=== PATIENT | male | born 1955 | race African-American/Black ===

== ENCOUNTER 2018-09-27 13:59 | Inpatient (IN) | payer OTHER ==
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
[2018-09-27] MEDS ORDERED: ACETAMINOPHEN 500 MG TABLET (FP) PO ONE (14:26)
[2018-09-27] MEDS ORDERED: ACETAMINOPHEN 500 MG TABLET (FP) ONE (14:30)
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
[2018-09-27 17:22] LABS: BASO % 0.2 % (0-2.0); EOS % 0.1 % (0-4.5); HEMOGLOBIN 16.3 GM/dl (11.7-16.9); LYMPH % 9.2 % (8-40); MCH 32.6 pg (25.7-33.7); MCHC 33.9 g/dl (32.0-35.9); MEAN CELL VOLUME 96.1 fl (80-96); MEAN PLT VOLUME 8.1 fl (7.5-11.1); MONO % 3.7 % (3.8-10.2); NEUT % 86.8 % (42.8-82.8); PLATELET COUNT 183 K/MM3 (134-434); RDW 12.6 % (11.9-15.9); WHITE BLOOD COUNT 8.7 K/mm3 (4.0-10.8)
[2018-09-27 17:37] LABS: ALBUMIN 4.4 g/dl (3.4-5.0); BILIRUBIN,TOTAL 1.1 mg/dl (0.2-1); POTASSIUM 4.3 mmol/L (3.5-5.1); TOT PROT 7.7 g/dl (6.4-8.2)
[2018-09-27 17:43] LABS: INR 1.18 (0.82-1.09); PROTHROMBIN TIME (PATIENT) 13.2 SEC (10.2-13.0)
[2018-09-27 23:03] VITALS: BMI 28.0
--- NOTE | 2018-09-27 23:42 | CONSULT ---
Consultation: REQUESTING PROVIDER: Dr. Fountain CONSULT REQUEST: We have been asked to medically evaluate this patient for subarachnoid bleed HISTORY OF PRESENT ILLNESS: 63 year old male with a hx of non-insulin dependent diabetes mellitus and hypertension presented to [facility] s/p fall off a ladder at around an elevation of 6ft. 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 He was on a ladder doing handywork when he fell backward onto the ground. Reports that he hit his R shoulder and R side of his head. States that he did lose consciousness and reports that he could have been out for around 1 hour prior to getting up. His fall was unwitnessed as it was in his backyard. States that he has 8/10 pain in his R clavicle. Currently denies headache, lightheadedness, dizziness, nausea, vomiting, diarrhea, fevers, chills. REVIEW OF SYSTEMS: CONSTITUTIONAL: Absent: fever, chills, diaphoresis, generalized weakness, malaise, loss of appetite, weight change HEENT: Absent: rhinorrhea, nasal congestion, throat pain, throat swelling, difficulty swallowing, mouth swelling, ear pain, eye pain, visual changes CARDIOVASCULAR: Absent: chest pain, syncope, palpitations, irregular heart rate, lightheadedness , peripheral edema RESPIRATORY: Absent: cough, shortness of breath, dyspnea with exertion, orthopnea, wheezing, stridor, hemoptysis GASTROINTESTINAL: Absent: abdominal pain, abdominal distension, nausea, vomiting, diarrhea, constipation, melena, hematochezia GENITOURINARY: Absent: dysuria, frequency, urgency, hesitancy, hematuria, flank pain, genital pain MUSCULOSKELETAL: Absent: myalgia, arthralgia, joint swelling, back pain, neck pain SKIN: Absent: rash, itching, pallor HEMATOLOGIC/IMMUNOLOGIC: Absent: easy bleeding, easy bruising, lymphadenopathy, frequent infections ENDOCRINE: Absent: unexplained weight gain, unexplained weight loss, heat intolerance, cold intolerance NEUROLOGIC: Absent: headache, focal weakness or paresthesias, dizziness, unsteady gait, seizure, mental status changes, bladder or bowel incontinence PSYCHIATRIC: Absent: anxiety, depression, suicidal or homicidal ideation, hallucinations. PHYSICAL EXAMINATION Vital Signs - 24 hr 09/27/18 09/27/18 22:38 22:55 Temperature 97.2 F L 97.2 F L Pulse Rate 83 Respiratory 18 18 Rate Blood Pressure 160/90 160/90 GENERAL: A&Ox3, no acute distress EYES: PERRLA, EOMI ENT: Moist mucus membranes NECK: No JVD LUNGS: CTA, no wheezes HEART: RRR, no murmurs ABDOMEN: Soft, nontender, BS present MUSCULOSKELETAL: No CVA Tenderness EXTREMITIES: 2+ pulses, no edema. Pain on R clavicle palpation. NEUROLOGICAL: Cranial nerves II-XII intact. Motor strength 5/5 LUE, restricted due to pain in clavicle in RUE. no sensory deficits. no dysmetria. ASSESSMENT/PLAN: 63 year old male with a hx of non-insulin dependent diabetes mellitus and hypertension presented to [facility] s/p fall off a ladder at around an elevation of 6ft and found to have an acute subarachnoid bleed with an acute clavicular fracture #Acute subarachnoid bleed #Acute clavicular fracture #Diabetes Mellitus #Hypertension Neurological -no acute neurologic abnormalities on physical exam -CT head shows small amount of subarachnoid blood -Neurosurg consulted Dr. Echols, will get repeat head CT in 24 hours -neurochecks -BP control, maintain BP < 160 systolic Cardiovascular -patient has hx of hypertension, maintain BP < 160 systolic -patient does not remember home BP medication, will confirm. -hemodynamically stable -no other cardiac abnormalities Pulmonary -no pulmonary issues Gastrointestinal -No acute issues Endocrine -DM - ISS/BGM -on metformin at home, will hold while inpatient FEN -no standing fluids -replete lytes a necessary -diabetic/sodium diet Prophylaxis -SCDs Disposition -monitor in ICU, likely downgrade in AM ATTENDING PHYSICIAN STATEMENT I saw and evaluated the patient. I reviewed the resident's note and discussed the case with the resident. I agree with the resident's findings and plan as documented. SUBJECTIVE: OBJECTIVE: ASSESSMENT AND PLAN:
[2018-09-27] MEDS ORDERED: ACETAMINOPHEN 325 MG TABLET (FP) PO PRN (23:50)
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
[2018-09-28 06:26] LABS: HEMATOCRIT 42.6 % (35.4-49); HEMOGLOBIN 14.8 GM/dL (11.7-16.9); MCH 32.7 pg (25.7-33.7); MCHC 34.7 g/dl (32.0-35.9); MEAN CELL VOLUME 94.1 fl (80-96); MEAN PLT VOLUME 8.3 fl (7.5-11.1); PLATELET COUNT 169 K/MM3 (134-434); RBC 4.53 M/mm3 (4.00-5.60); RDW 13.3 % (11.9-15.9); WHITE BLOOD COUNT 5.8 K/mm3 (4.0-10.0)
[2018-09-28] MEDS: INSULIN SLIDING SCALE (NOVOLOG) 1 VIAL SQ SCH ×4 (06:28→21:19)
[2018-09-28 06:44] LABS: BLOOD UREA NITROGEN 12.9 mg/dL (7-18); CALCIUM 8.5 mg/dL (8.5-10.1); MAGNESIUM 2.1 mg/dL (1.8-2.4); PHOSPHOROUS 3.1 mg/dL (2.5-4.9); POTASSIUM 3.8 mmol/L (3.5-5.1)
[2018-09-28] MEDS ORDERED: INSULIN SLIDING SCALE (NOVOLOG) 1 VIAL SQ SCH (07:00)
--- NOTE | 2018-09-28 07:46 | CONSULT ---
Consult - text type - Consultation Consultation Note: ORTHOPEDIC SURGERY CONSULTATION NOTE Department of Orthopedic Surgery HISTORY OF PRESENT ILLNESS Mr. Joyce is a 63 year old right hand dominant male with PMH significant for HTN, DM, and SUDARSHAN who presented to the hospital after falling from a 6ft ladder and losing consciousness. He has been admitted to the ICU for subarachnoid hemorrhage. The orthopedic service was consulted for a right clavicle fracture. The patient notes pain and swelling at his right clavicle with LROM of his shoulder, which improves with rest. Denies any other injuries. Denies numbness, tingling or other constitutional complaints. The patient works as a contractor. Denies tobacco use, drug use, alcohol abuse. The patient lives with family and uses no assistive devices at baseline. FAMILY HISTORY non-contributory REVIEW OF SYMPTOMS A twelve-point review of systems was performed and was negative except as noted in HPI. PHYSICAL EXAM Constitutional: Alert and oriented to person, place, and time. Appears well- developed and well-nourished. No acute distress, appropriate mood and affect. Right Upper Extremity: Skin warm, dry, and intact; no lesions, rashes or ulcers noted. No tenting of the skin is seen. There is mild bruising and swelling over the clavicle. Muscle mass equal and symmetric to contralateral side. No atrophy noted. No masses or effusions noted. Tender to palpation at the right clavicle; Nontender throughout rest of extremity. Full passive and active ROM of his elbow , shoulder (IR/ER), and wrist and fingers, free from pain. Joints stable with no pathologic laxity. M/R/U/MSK/AX motor intact; SILT distally; 2+ radial pulses ; Cap refill brisk. Tone and reflexes normal. Left Upper Extremity: Skin warm, dry, and intact; no lesions, rashes or ulcers noted. Muscle mass equal and symmetric to contralateral side. No atrophy noted. No masses or effusions noted. No tenderness to palpation all joints; nontender throughout rest of extremity. Full passive and active ROM, free from pain. Joints stable with no pathologic laxity. M/R/U/MSK/AX motor intact; SILT distally; 2+ radial pulses; Cap refill brisk. Tone and reflexes normal. Right Lower Extremity: Skin warm, dry, and intact; no lesions, rashes or ulcers noted. Muscle mass equal and symmetric to contralateral side. No atrophy noted. No masses or effusions noted. No tenderness to palpation all joints; nontender throughout rest of extremity. No cords or calf tenderness No significant calf/ankle edema. Full passive and active ROM, free from pain. Joints stable with no pathologic laxity. EHL/TA/GS motor intact; SILT distally; 2+ DP pulses; Cap refill brisk. Tone and reflexes normal. Left Lower Extremity: Skin warm, dry, and intact; no lesions, rashes or ulcers noted. Muscle mass equal and symmetric to contralateral side. No atrophy noted. No masses or effusions noted. No tenderness to palpation all joints; nontender throughout rest of extremity. No cords or calf tenderness No significant calf/ankle edema. Full passive and active ROM, free from pain. Joints stable with no pathologic laxity. EHL/TA/GS motor intact; SILT distally; 2+ DP pulses; Cap refill brisk. Tone and reflexes normal. Active Problems Problem Status Category Onset Fall from ladder Acute Medical Fracture, clavicle closed, shaft Acute Medical SAH (subarachnoid hemorrhage) Acute Medical Social History Smoking history Never smoked Hx Alcohol Use No Allergies Allergy/AdvReac Type Severity Reaction Status Date / Time No Known Allergies Allergy Verified 09/27/18 14:04 Active Medications Generic Name Dose Route Start Last Admin Trade Name Freq PRN Reason Stop Dose Admin Acetaminophen 650 mg 09/27/18 23:50 Tylenol - PO Q4H PRN PAIN Chlorhexidine Gluconate 1 applic 09/28/18 22:00 Hibiclens For Decolonization - TP HS [facility] Insulin Aspart 1 vial 09/28/18 07:00 09/28/18 06:28 Novolog Vial Sliding Scale - SQ Not Given ACHS [facility] Protocol Mupirocin 1 applic 09/28/18 10:00 Bactroban Ointment (For Decolonization) - NS 10/03/18 09:59 BID [facility] Vital Signs (last) Temp Pulse Resp BP Pulse Ox 97.2 F L 69 18 148/99 09/27/18 22:55 09/28/18 06:00 09/28/18 06:00 09/28/18 06:00 Intake and Output 09/26/18 09/27/18 09/28/18 23:59 23:59 23:59 Intake Total 240 Output Total 500 Balance -260 Intake: Oral 240 Output: Urine 500 Void 500 Other: Weight 173 lb 11.2 oz 175 lb 1 oz Height 5 ft 6 in Body Mass Index (BMI) 28.0 Weight Measurement Method Built in Bed[facility] 09/28/18 05:20 09/28/18 05:20 IMAGING I personally reviewed all radiographs, CT, and other imaging. They demonstrate a midshaft displaced clavicle fracture. ASSESSMENT AND PLAN Mr. Joyce is a 63 year old male presenting status post fall admitted with subarachnoid hemorrhage, with a right sided clavicle fracture. We have reviewed the imaging and clinical findings in detail, as well as their potential implications. After appropriate informed discussion, the patient was placed in a sling. Patient was instructed regarding: non weight bearing on fractured side in sling signs and symptoms of compartment syndrome and need to seek immediate care should new onset numbness, tingling, or significantly increasing pain occur. maintain strict elevation above the level of the heart for the next 3-4 days. keeping the splint clean and dry. avoiding NSAID medications. Continue medical management. No further orthopedic surgical intervention at this time. All questions were answered. Thank you for involving our team in the care of this patient. Please have patient follow up in our office in 1-2 weeks [phone].
--- NOTE | 2018-09-28 09:13 | PN ---
Progress Note (short form) - Note Progress Note: NEUROSURGERY CONSULT DICTATED Chart reviewed Pt examined CT reviewed H/o HTN, DM s/p falling from a ladder and losing consciousness in his backyard. He believes he lost consciousness for about one hour. He notes that he has some trauma to his right hand. He denies headache, dizziness, diplopia, photophobia. c/o right shoulder pain, and can move his right hand and fingers. Denies any numbness or paresthesias of his right upper extremities. PE: AF, VSS HEENT- NC/AT; neck- supple; Cor- RRR; Lungs- CTA B; Abd- benign, + BS; Ext- no sign of DVT A/A/Ox3 CN- intact II-XII; Motor- 5/5 except decreased R shoulder ROM and strength; Sensation- intact; DTR- 1+ B UE/LE Labs- reviewed Head CT- no fx, small LEE R fronto-parietal junction; no mass effect C spine CT- reversal of lordosis, moderate spondylosis TSAH with intact neurological exam R clavicle fx - ortho f/u F/u head CT D/w ICU team
[2018-09-28] MEDS ORDERED: levETIRAcetam 500 MG/5 ML INJECTION VIAL IVPB SCH (10:00)
[2018-09-28] MEDS ORDERED: MUPIROCIN 2% TOPICAL OINTMENT FOR DECOLONIZATION NS SCH (10:00)
--- NOTE | 2018-09-28 11:25 | PN ---
Teaching Attending Note Name of Resident: Demetrius Avila ATTENDING PHYSICIAN STATEMENT I saw and evaluated the patient. I reviewed the resident's note and discussed the case with the resident. I agree with the resident's findings and plan as documented. SUBJECTIVE:asymptomatic. denies Cp, SOB,fever, chills, n/v/C/D, blurred vision, RAMIREZ, or tinnitus, weakness/numbness on one side. states he had +LOC for about an hour OBJECTIVE: Last Vital Signs Temp Pulse Resp BP Pulse Ox 98.2 F 71 16 156/90 09/28/18 10:00 09/28/18 10:00 09/28/18 10:00 09/28/18 10:00 General NAD CV s1 s2 RRR no murmur/rub/gallop Lungs CTA B/L no wheezing/rales/rhonchi Extremiteis RUE in sling, with good pulse and able to move the digits neuro CN II-XII grossly intact, strength equal in all 4 extremities (limited in RUE due to sling) neg dysmetria ASSESSMENT AND PLAN: 63yo M wtih PMH HTN, DM, SUDARSHAN on cpap presented to the ER after falling off a ladder after being electrocuted. was transferred from [facility] for MICU monitoring due to SAH 1. R frontoparietal SAH- due to trauma. cspine negative for facture. no neurological deficits appreciated. will repeat Head CT. seizure prophylaxis with Keppra. frequent neurochecks. Neurosurg on board 2. R clavicle Fracture- due to trauma. in sling. no intervention at this time. pain control. ortho consulted 3. HTN- above goal which could be due to pain. will re-start home medications. may need titration to optimize control 4. DVT ppx- SCD. hold pharmacologic in setting of SAH 5. MICU monitoring The care of this patient involved high complexity decision making to prevent further life threatening deterioration of the patient's condition and/or to evaluate & treat vital organ system(s) failure or risk of failure. 40 mins
--- NOTE | 2018-09-28 12:34 | PN ---
Physical Exam: SUBJECTIVE: Patient seen and examined at the bedside. Patient did not have any acute complaints. Denied chest pain, sob, abd pain, palpitations, weakness, numbness, tingling, visual changes, dizziness, lightheadedness, dysphagia, dyarthria, headache, fever, chills. OBJECTIVE: Vital Signs Period Temp Pulse Resp BP Sys/Shelby Pulse Ox Last 24 Hr 97.2 F-98.2 F 69-97 15-20 128-166/81-103 97-100 GENERAL: The patient is awake, alert, and fully oriented, in no acute distress. HEAD: Normal with no signs of trauma. EYES: PERRL, extraocular movements intact, sclera anicteric, conjunctiva clear. NECK: Trachea midline, full range of motion, supple. LUNGS: Breath sounds equal, clear to auscultation bilaterally, no wheezes, no crackles, no accessory muscle use. HEART: Regular rate and rhythm, S1, S2 without murmur, rub or gallop. ABDOMEN: Soft, nontender, nondistended, normoactive bowel sounds, no guarding, no rebound, no masses. EXTREMITIES: 2+ pulses, warm, well-perfused, no edema. Painful to palpation of R clavicle. NEUROLOGICAL: Cranial nerves II through XII grossly intact. Muscle strength 5/5 on bilateral LE, 5/5 on L UE, 4/5 on RUE likely from pain from fracture of clavicle. Bilaterally and equally intact to light touch. FTN intact, HTS intact. Romberg negative. PSYCH: Normal mood, normal affect. SKIN: Warm, dry, normal turgor, no rashes or lesions noted. Laboratory Results - last 24 hr 09/27/18 09/27/18 09/27/18 17:00 17:00 17:00 WBC 8.7 RBC 5.00 Hgb 16.3 Hct 48.0 MCV 96.1 H MCH 32.6 MCHC 33.9 RDW 12.6 Plt Count 183 MPV 8.1 Absolute Neuts (auto) 7.6 Neutrophils % 86.8 H Lymphocytes % 9.2 Monocytes % 3.7 L Eosinophils % 0.1 Basophils % 0.2 PT with INR INR PTT (Actin FS) 31.0 Sodium 136 Potassium 4.3 Chloride 103 Carbon Dioxide 27 Anion Gap 6 L BUN 16.0 Creatinine 1.0 Est GFR (CKD-EPI)AfAm 93.73 Est GFR (CKD-EPI)NonAf 80.87 POC Glucometer Random Glucose 196 H Calcium 9.0 Phosphorus Magnesium Total Bilirubin 1.1 H AST 25 ALT 35 Alkaline Phosphatase 54 Total Protein 7.7 Albumin 4.4 Blood Type Antibody Screen 09/27/18 09/27/18 09/28/18 17:00 17:00 05:20 WBC 5.8 RBC 4.53 Hgb 14.8 Hct 42.6 MCV 94.1 MCH 32.7 MCHC 34.7 RDW 13.3 Plt Count 169 MPV 8.3 Absolute Neuts (auto) Neutrophils % Lymphocytes % Monocytes % Eosinophils % Basophils % PT with INR 13.2 H INR 1.18 PTT (Actin FS) Sodium Potassium Chloride Carbon Dioxide Anion Gap BUN Creatinine Est GFR (CKD-EPI)AfAm Est GFR (CKD-EPI)NonAf POC Glucometer Random Glucose Calcium Phosphorus Magnesium Total Bilirubin AST ALT Alkaline Phosphatase Total Protein Albumin Blood Type A POSITIVE Antibody Screen Negative 09/28/18 09/28/18 09/28/18 05:20 05:24 11:15 WBC RBC Hgb Hct MCV MCH MCHC RDW Plt Count MPV Absolute Neuts (auto) Neutrophils % Lymphocytes % Monocytes % Eosinophils % Basophils % PT with INR INR PTT (Actin FS) Sodium 140 Potassium 3.8 Chloride 107 Carbon Dioxide 27 Anion Gap 7 L BUN 12.9 Creatinine 1.0 Est GFR (CKD-EPI)AfAm 93.73 Est GFR (CKD-EPI)NonAf 80.87 POC Glucometer 132 206 Random Glucose 143 H Calcium 8.5 Phosphorus 3.1 Magnesium 2.1 Total Bilirubin AST ALT Alkaline Phosphatase Total Protein Albumin Blood Type Antibody Screen Active Medications Generic Name Dose Route Start Last Admin Trade Name Freq PRN Reason Stop Dose Admin Acetaminophen 650 mg 09/27/18 23:50 Tylenol - PO Q4H PRN PAIN Chlorhexidine Gluconate 1 applic 09/28/18 22:00 Hibiclens For Decolonization - TP HS [facility] Insulin Aspart 1 vial 09/28/18 07:00 09/28/18 11:27 Novolog Vial Sliding Scale - SQ 2 units ACHS [facility] Administration Protocol Levetiracetam 500 mg 09/28/18 10:00 09/28/18 10:15 Keppra Injection - IVPB 500 mg BID [facility] Administration Mupirocin 1 applic 09/28/18 10:00 09/28/18 11:27 Bactroban Ointment (For Decolonization) - NS 10/03/18 09:59 1 applic BID [facility] Administration ASSESSMENT/PLAN: Jassi Joyce is a 63 year old male with a PMHx of HTN, DM, SUDARSHAN who presented to the ICU after an unwitnessed fall from a ladder and possible head hit discovered with a subarachnoid hemorrhage. Subarachnoid hemorrhage Acute clavicular head fracture DM HTN NEUROLOGIC - non focal neurologic exam - CT head showing frontoparietal convexity subarachnoid hemorrhage - head CT showing interval resolution of subarachnoid hemorrhage - Dr. Echols consulted, recs appreciated - Archie for seizure prophylaxis as per primary team - neurocheck q4h CARDIOLOGY - no acute issues - once home medications reconciled, may resume home meds RESPIRATORY - no acute issues RENAL - no acute issues GASTROINTESTINAL - no acute issues GENITOURINARY - no acute issues INFECTIOUS DISEASE - no acute issues ENDOCRINE - BGM ACHS - ISS HEMATOLOGY - continue to trend H/H, transfuse as needed MUSCULOSKELETAL - midshaft fx of the clavicle - cervical CT does not show any acute fx - Dr. Lazaro consulted, recs appreciated - sling given to patient - no acute indication for surgery - recs as per ortho PSYCHIATRY - no acute issues F/E/N - no standing fluids - continue to monitor electrolytes and transfuse as necessary - diabetic/sodium controlled diet LINES - L AC 20 gauge, inserted 09/27 PROPHYLAXIS - no chemical prophylaxis due to acute subarachnoid bleed - early ambulation CODE - full code DISPO - stable for transfer to telemetry CASE DISCUSSED WITH DR. LOCKWOOD AND PRIMARY TEAM KATYA NINO DO - PGY-1 INTERNAL MEDICINE Problem List - Problems (1) Fall from ladder Code(s): W11.XXXA - FALL ON AND FROM LADDER, INITIAL ENCOUNTER Qualifiers: Encounter type: initial encounter Qualified Code(s): W11.XXXA - Fall on and from ladder, initial encounter (2) Fracture, clavicle closed, shaft Code(s): S42.023A - DISP FX OF SHAFT OF UNSP CLAVICLE, INIT FOR CLOS FX Qualifiers: Encounter type: initial encounter Fracture alignment: nondisplaced Laterality: right Qualified Code(s): S42.024A - Nondisplaced fracture of shaft of right clavicle, initial encounter for closed fracture (3) SAH (subarachnoid hemorrhage) Code(s): I60.9 - NONTRAUMATIC SUBARACHNOID HEMORRHAGE, UNSPECIFIED Visit type - Emergency Visit Emergency Visit: No - New Patient This patient is new to me today: Yes Date on this admission: 09/28/18 - Critical Care Critical Care patient: No
--- NOTE | 2018-09-28 17:40 | PN ---
Physical Exam: SUBJECTIVE: Patient seen and examined in ICU today LINA 2, sitting in comfortably in bed. Pt is s/p fall from a six-foot ladder 2/2 to electric shock from open lightbulb socket. He states he was alone, fell on grass, and was unconscious for approximately one hour. Pt has no complaints today except for pain upon moving RUE. Pt is able to move all digits, he can flex his elbow but cannot raise his RUE at the shoulder w/out pain. He is communicating clearly and denies RAMIREZ, vision change, SOB, CP. Denies numbness and tingling. He states he has passed urine and stool normally. OBJECTIVE: Vital Signs Last Vital Signs Temp Pulse Resp BP Pulse Ox 98.3 F 68 24 H 152/73 100 09/28/18 16:25 09/28/18 16:25 09/28/18 16:25 09/28/18 16:25 09/28/18 09:00 GENERAL: The patient is awake, alert, and fully oriented, in no acute distress. Communicates in Malagasy. HEAD: Atraumatic, normocephalic. EYES: PERRLA, extraocular movements intact, sclera anicteric, conjunctiva clear. No ptosis. LUNGS: Breath sounds equal, clear to auscultation bilaterally, no wheezes, no crackles, no accessory muscle use. HEART: Regular rate and rhythm, S1, S2 without murmur, rub or gallop. ABDOMEN: Soft, nontender, nondistended, normoactive bowel sounds, no guarding, no rebound, no hepatosplenomegaly, no masses. EXTREMITIES: 2+ pulses, warm, well-perfused, capillary refill w/in 3 seconds, no edema. NEUROLOGICAL: Cranial nerves II through XII grossly intact. Normal speech. Gait not observed though pt reports he is able to walk to the bathroom. No evidence of dysmetria. Strength 5/5 in BL LE, LUE but not tested in RUE. PSYCH: Normal mood, normal affect. SKIN: Warm, dry, normal turgor, no rashes or lesions noted Laboratory Results - last 24 hr 09/27/18 09/27/18 09/27/18 17:00 17:00 17:00 WBC RBC Hgb Hct MCV MCH MCHC RDW Plt Count MPV PT with INR 13.2 H INR 1.18 PTT (Actin FS) 31.0 Sodium 136 Potassium 4.3 Chloride 103 Carbon Dioxide 27 Anion Gap 6 L BUN 16.0 Creatinine 1.0 Est GFR (CKD-EPI)AfAm 93.73 Est GFR (CKD-EPI)NonAf 80.87 POC Glucometer Random Glucose 196 H Calcium 9.0 Phosphorus Magnesium Total Bilirubin 1.1 H AST 25 ALT 35 Alkaline Phosphatase 54 Total Protein 7.7 Albumin 4.4 Blood Type Antibody Screen 09/27/18 09/28/18 09/28/18 17:00 05:20 05:20 WBC 5.8 RBC 4.53 Hgb 14.8 Hct 42.6 MCV 94.1 MCH 32.7 MCHC 34.7 RDW 13.3 Plt Count 169 MPV 8.3 PT with INR INR PTT (Actin FS) Sodium 140 Potassium 3.8 Chloride 107 Carbon Dioxide 27 Anion Gap 7 L BUN 12.9 Creatinine 1.0 Est GFR (CKD-EPI)AfAm 93.73 Est GFR (CKD-EPI)NonAf 80.87 POC Glucometer Random Glucose 143 H Calcium 8.5 Phosphorus 3.1 Magnesium 2.1 Total Bilirubin AST ALT Alkaline Phosphatase Total Protein Albumin Blood Type A POSITIVE Antibody Screen Negative 09/28/18 09/28/18 09/28/18 05:24 11:15 16:26 WBC RBC Hgb Hct MCV MCH MCHC RDW Plt Count MPV PT with INR INR PTT (Actin FS) Sodium Potassium Chloride Carbon Dioxide Anion Gap BUN Creatinine Est GFR (CKD-EPI)AfAm Est GFR (CKD-EPI)NonAf POC Glucometer 132 206 201 Random Glucose Calcium Phosphorus Magnesium Total Bilirubin AST ALT Alkaline Phosphatase Total Protein Albumin Blood Type Antibody Screen Active Medications Current Medications Acetaminophen (Tylenol -) 650 mg PO Q4H PRN PRN Reason: PAIN Chlorhexidine Gluconate (Hibiclens For Decolonization -) 1 applic TP HS KASSIE Insulin Aspart (Novolog Vial Sliding Scale -) 1 vial SQ ACHS [facility]; Protocol Last Admin: 09/28/18 17:34 Dose: 2 units Levetiracetam (Keppra Injection -) 500 mg IVPB BID [facility] Last Admin: 09/28/18 10:15 Dose: 500 mg Mupirocin (Bactroban Ointment (For Decolonization) -) 1 applic NS BID [facility] Stop: 10/03/18 09:59 Last Admin: 09/28/18 11:27 Dose: 1 applic ASSESSMENT/PLAN: 63 y/o M w PMH HTN, DM, SUDARSHAN s/p fall with head and shoulder trauma #head trauma - Placed on Kepra for seizure prophylaxis in the setting of [employer] hemorrhage - Seen by Dr. Echols today (neuro). Recommends f/u CT - F/u CT today shows interval resolution of small subarachnoid blood along right frontoparietal convexity in comparison to CT on 09/27/18 - ICU preparing pt for transfer to tele unit #shoulder trauma - CT demonstrates midshaft clavicular fracture - Seen by Dr. Lazaro (ortho). Recommends use of sling and f/u #HTN - Cont. current home regimen of lisinopril 5 mg QD # DM - Novalog sliding scale here in hospital - Home regimen med rec to be metformin 500 mg BID #FEN - No standing fluids - Cont. to monitor electrolytes - Normal diet #prophylaxis - early ambulation #Dispo - Transfer to tele unit Visit type - Emergency Visit Emergency Visit: Yes ED Registration Date: 09/27/18 Care time: The patient presented to the Emergency Department on the above date and was hospitalized for further evaluation of their emergent condition. - New Patient This patient is new to me today: No - Critical Care Critical Care patient: Yes Total Critical Care Time (in minutes): 45 Critical Care Statement: The care of this patient involved high complexity decision making to prevent further life threatening deterioration of the patient 's condition and/or to evaluate & treat vital organ system(s) failure or risk of failure. - Discharge Referral Referred to [facility] No ATTENDING PHYSICIAN STATEMENT I saw and evaluated the patient. I reviewed the resident's note and discussed the case with the resident. I agree with the resident's findings and plan as documented. SUBJECTIVE: OBJECTIVE: ASSESSMENT AND PLAN:
[2018-09-28] MEDS ORDERED: ACETAMINOPHEN 325 MG TABLET (FP) PO PRN (18:28)
[2018-09-28] MEDS: levETIRAcetam 500 MG/5 ML INJECTION VIAL IVPB SCH (21:38)
[2018-09-28] MEDS ORDERED: CHLORHEXIDINE GLUCONATE 4% CLEANSER FOR DECOLONIZATION TP SCH (22:00)
--- NOTE | 2018-09-29 05:16 | PN ---
Progress Note (short form) - Note Progress Note: NEUROSURGERY In telemetry No headache, dizziness, diplopia, photophobia. right shoulder pain and decreased ROM, but can move his right hand and fingers. Denies any numbness or paresthesias of his right upper extremities. PE: AF, VSS Sitting up in bed, resting comfortably HEENT- NC/AT; neck- supple; Cor- RRR; Lungs- CTA B; Abd- benign, + BS; Ext- no sign of DVT CN- intact II-XII; Motor- 5/5 except decreased R shoulder ROM and strength; Sensation- intact; DTR- 1+ B UE/LE Labs- reviewed Head CT- no fx, small LEE R fronto-parietal junction; no mass effect F/u head CT- no clear LEE TSAH with intact neurological exam, not seen on f/u head CT R clavicle fx No neurosurgical intervention indicated
[2018-09-29] MEDS: INSULIN SLIDING SCALE (NOVOLOG) 1 VIAL SQ SCH ×3 (06:42→17:23)
[2018-09-29] MEDS: levETIRAcetam 500 MG/5 ML INJECTION VIAL IVPB SCH (09:18)
--- NOTE | 2018-09-29 15:45 | PN ---
Teaching Attending Note Name of Resident: Demetrius Avila ATTENDING PHYSICIAN STATEMENT I saw and evaluated the patient. I reviewed the resident's note and discussed the case with the resident. I agree with the resident's findings and plan as documented. SUBJECTIVE: Feeling well - no complaints. R shoulder/clavicle pain controlled. No numbness/tingling/weakness OBJECTIVE: Afebrile, Hemodynamically Stable. Last Vital Signs Temp Pulse Resp BP Pulse Ox 98.5 F 72 20 166/93 96 09/29/18 14:00 09/29/18 14:00 09/29/18 09:00 09/29/18 14:00 09/29/18 09:00 HEENT - normocephalic. Heart - S1, S2, RRR Lungs - clear to auscultation Abdomen - Soft, non-tender. Extremities - no edema, no calf tenderness. RUE in sling. Power normal R hand. Laboratory Results - last 24 hr 09/28/18 09/28/18 09/29/18 16:26 21:19 06:22 POC Glucometer 201 175 186 09/29/18 12:10 POC Glucometer 172 Current Medications Generic Name Dose Route Start Last Admin Trade Name Freq PRN Reason Stop Dose Admin Acetaminophen 650 mg 09/28/18 18:28 Tylenol - PO Q4H PRN PAIN LEVEL 1-5 Insulin Aspart 1 vial 09/28/18 22:00 09/29/18 12:11 Novolog Vial Sliding Scale - SQ Not Given ACHS [facility] Protocol Home Medications Medication Instructions Recorded Lisinopril 5 mg PO DAILY 09/29/18 Miscellaneous Medical Supply 1 each [place] [facility] [Outpatient Order] metFORMIN HCL [Metformin HCl] 500 mg PO BID 09/29/18 ASSESSMENT AND PLAN: 63 year old male with HTN, DM 2, SUDARSHAN on CPAP, presents s/p fall off ladder after being electrocuted while changing a light bulb. He was transferred from [facility] for MICU monitoring due to SAH on CT Head. 1. R Frontoparietal SAH secondary to head trauma. CT Head - SAH. CT C-spine neg for fracture. Neurologicaly Intact. repeat Head CT shows resolution of hemorrhage. 2. Acute R claviclar Fracture sec to trauma - RUE in sling. Ortho evaluated - further recommendations as per Ortho. 3. HTN - resume Lisinopril. 4. DM 2 - Resume Metformin on discharge 5. DVT Px - SCDs. Heparin held in setting of ICH. medically optimized once BP improved on resuming home Lisinopril.
[2018-09-29] MEDS ORDERED: LISINOPRIL 5 MG TABLET (FP) PO ONE (15:47)
[2018-09-29] MEDS ORDERED: METHYL SALICYLATE/MENTHOL OINT 30 GM TUBE TP SCH (17:00)
[2018-09-29 17:43] VITALS: BP 143/96; PULSE 70; TEMP 98.4
--- NOTE | 2018-09-29 17:53 | DS ---
Physical Exam: SUBJECTIVE: Patient seen and examined in 4w [facility]. He has no complaints outside of known arm pain on movement d/t right clavicle midshaft deformity. Denies SOB, CP. Denies NVFD, ambulating well. OBJECTIVE: Vital Signs Last Vital Signs Temp Pulse Resp BP Pulse Ox 98.4 F 70 20 143/96 96 09/29/18 17:42 09/29/18 17:42 09/29/18 17:42 09/29/18 17:42 09/29/18 09:00 PHYSICAL EXAM GENERAL: The patient is awake, alert, and fully oriented, in no acute distress. HEAD: Normal with no signs of trauma. EYES: PERRL, extraocular movements intact, sclera anicteric, conjunctiva clear. ENT: Ears normal, nares patent, oropharynx clear without exudates, moist mucous membranes. NECK: Trachea midline, full range of motion, supple. LUNGS: Breath sounds equal, clear to auscultation bilaterally, no wheezes, no crackles, no accessory muscle use. HEART: Regular rate and rhythm, S1, S2 without murmur, rub or gallop. ABDOMEN: Soft, nontender, nondistended, normoactive bowel sounds, no guarding, no rebound, no hepatosplenomegaly, no masses. EXTREMITIES: 2+ pulses, warm, well-perfused, no edema. NEUROLOGICAL: Cranial nerves II through XII grossly intact. Normal speech, gait not observed. PSYCH: Normal mood, normal affect. SKIN: Warm, dry, normal turgor, no rashes or lesions noted. LABS Laboratory Results - last 24 hr 09/28/18 09/29/18 09/29/18 21:19 06:22 12:10 POC Glucometer 175 186 172 09/29/18 17:07 POC Glucometer 200 HOSPITAL COURSE: Date of Admission:09/27/18 63 y/o M w PMH HTN, DM, SUDARSHAN s/p fall with head and shoulder trauma. Seen in ICU. Nuero on board. Ortho on board. Tranfered to tele unit s/p resolving SAH shown on CT. BP med increased to 10 mg lisinopril and DC home with rec of PT and NSAID to manage pain. IMAGING 09/27/18 CT CERVICAL SPINE No cervical spine fracture is seen. A reversal of the cervical lordosis is noted. Curvilinear containing soft tissue stranding is seen posteriorly which is probably chronic in nature, less likely representing acute edema. There is partial imaging of an acute right clavicular fracture. HEAD CT WITHOUT CONTRAST A small amount of acute subarachnoid blood is seen along the right frontoparietal convexity. CR SHOULDER-RIGHT 3 views of the right shoulder reveal a fracture deformity of the clavicle of unclear age. In 2 views it appears acute while in the other view it appears old. The remainder of the shoulder exam is unremarkable.2 views of the right clavicle reveal a deformity of the mid shaft compatible with fracture of unclear age. In one view it appears acute while in the other view and appears old. AC joint is intact. 09/28/[address] WITHOUT CONTRAST Interval resolution of a small amount of acute subarachnoid blood is noted along the right frontoparietal convexity in comparison to a CT exam of 09/27/2018. Date of Discharge: 09/29/18 Minutes to complete discharge: 40 Discharge Summary Reason For Visit: FELL FROM LADDER Current Active Problems Fall from ladder (Acute) Fracture, clavicle closed, shaft (Acute) SAH (subarachnoid hemorrhage) (Acute) Condition: Stable - Instructions Diet, Activity, Other Instructions: Your visit You were admitted to the hospital because you had a fall and had a clavicular fracture. On CAT scan, you were noted to have a small brain bleed, that resolved spontaneously on repeat CAT scan. You were evaluated by neurosurgery and orthopedic surgery, and no surgical intervention recommended at this time. You are advised to keep the sling on and maintain strict elevation above the level of the heart for the next 3-4 days. Do not bear weight on the fracture side and keep the splint clean and dry. Please seek immediate care if you have any numbness, tingling or increasing pain on the left arm/shoulder. Your blood pressure was also noted to be high. We have increased your Lisinopril to 10mg daily. It is important that you follow up with your primary care doctor to discuss for further management to better control your blood pressure. You will also need a repeat blood work (BMP) to check your kidney function. Medications Please take note of the following changes to your medications: 1. Lisinopril 10mg daily. You may take Tylenol as needed for pain. Avoid taking Ibuprofen or Motrin. Continue your other home medications as prescribed. Follow up Please follow up with the orthopedic surgeon (Dr. Lazaro) within 1-2 weeks. Please call [phone] to schedule an appointment. Please follow up with the neurosurgeon (Dr. Echols). Please follow up with your primary care doctor within 1 week. Additional info Please call 911 or go to the ED if with any worsening fever, chills, headache, dizziness, chest pain, shortness of breath, diarrhea, numbness, tingling, pain, or any new concerns noted. Referrals: [facility] [place] [facility] [place] [Provider Group] Lg Ariza DIR [Physical Therapist] - Deep Echols MD [Staff Physician] - Mandeep Lazaro DO [Staff Physician] - Disposition: HOME - Home Medications Comprehensive Discharge Medication List: Ambulatory Orders Lisinopril [Prinivil] 10 mg PO DAILY #30 tablet 09/29/18 Miscellaneous Medical Supply [Outpatient Order] 1 each ASDIR #1 misc metFORMIN HCL [Metformin HCl] 500 mg PO BID 09/29/18 This patient is new to me today: No Emergency Visit: Yes ED Registration Date: 09/27/18 Care time: The patient presented to the Emergency Department on the above date and was hospitalized for further evaluation of their emergent condition. Critical Care patient: No - Discharge Referral Referred to [facility] No ATTENDING PHYSICIAN STATEMENT I saw and evaluated the patient. I reviewed the resident's note and discussed the case with the resident. I agree with the resident's findings and plan as documented. SUBJECTIVE: OBJECTIVE: ASSESSMENT AND PLAN:
== END 2018-09-29 18:39 | disposition home or self-care (01) | DRG 84 ==
LOC: FER 13:59 → JICU 17:58 → J4W 09-28 18:38
PROVIDERS: ADMIT Internal Medicine
DX: S06.6X3A Traumatic subarachnoid hemorrhage with loss of consciousness of 1 hour to 5 hours 59 minutes, initial encounter (principal); S42.021A Displaced fracture of shaft of right clavicle, initial encounter for closed fracture; W11.XXXA Fall on and from ladder, initial encounter; Y93.89 Activity, other specified; Y92.096 Garden or yard of other non-institutional residence as the place of occurrence of the external cause; Y99.8 Other external cause status; I10 Essential (primary) hypertension; E11.9 Type 2 diabetes mellitus without complications; G47.33 Obstructive sleep apnea (adult) (pediatric)
CPT/HCPCS: 36415; 70450-TC; 72125-TC; 73000-TC-RT-FY; 73030-TC-RT-FY; 80048; 80053; 82962; 83735; 84100; 85025; 85027; 85610; 85730; 86850; 86900; 86901; 99284-25